=== PATIENT | male | born 1950 | race African-American/Black ===

== ENCOUNTER 2021-05-30 09:31 | Observation (INO) ==
[2021-05-30] MEDS ORDERED: ACETAMINOPHEN 325 MG TABLET PO PRN (10:22)
[2021-05-30] MEDS ORDERED: DEXTROSE 10% 25 GM/250 ML BAG IV PRN (10:22)
[2021-05-30] MEDS ORDERED: ONDANSETRON 4 MG/2 ML VIAL IV PRN (10:22)
[2021-05-30] MEDS ORDERED: GLUCAGON 1 MG VIAL IM PRN ×2 (10:22→15:19)
[2021-05-30 10:34] LABS: Basophils % 0.5 % (0.0-0.8); Eosinophils % 0.5 % (0.00-10.9); Hematocrit 31.5 VOL% (42.0-52.0); Hemoglobin 9.9 GM/DL (14.0-18.0); Immature Granulocytes % 0.3 %; Immature Granulocytes Absolute 0.02 #; Lymphocytes # 1.3 10*3/uL (1.4-4.0); Lymphocytes % 21.4 % (21.2-54.2); Mean Corpuscular HGB Conc 31.4 GM/DL (32-36); Mean Corpuscular Volume 88.5 FL (87-102); Mean Platelet Volume 10.8 FL (9.6-12.0); Monocytes % 7.4 % (1.7-12.7); Neutrophils % 69.9 % (38.7-73.9); Platelet Count 195 T/CUMM (130-400); Red Blood Count 3.56 MC/CUMM (3.8-5.5); Red Cell Distribution Width 19.1 % (9.3-17.3); White Blood Count 6.1 T/CUMM (4-12)
[2021-05-30 10:48] LABS: Calcium 8.6 MG/DL (8.5-10.1); Potassium 4.6 MMOL/L (3.5-5.1)
[2021-05-30] MEDS: LACTATED RINGERS 1,000 ML IV SCH ×2 (11:21→22:59)
[2021-05-30] MEDS ORDERED: DEXTROSE 50% 25 GM/50 ML VIAL IV PRN (15:19)
[2021-05-31 01:27] LABS: Barbiturates Screen,Urine Negative (Negative); Benzodiazepines Screen,Urine Negative (Negative); Cannabinoid Screen,Urine Negative (Negative); Opiate Screen,Urine Positive (Negative); Phencyclidine Screen,Urine Negative (Negative)
[2021-05-31] MEDS: LACTATED RINGERS 1,000 ML IV SCH ×2 (02:54→06:49)
[2021-05-31] MEDS ORDERED: PANTOPRAZOLE 40 MG TABLET PO SCH (09:00)
[2021-05-31 16:12] VITALS: BP 145/70
== END 2021-05-31 17:00 | disposition home or self-care (01) ==
LOC: N.ED 09:31 → N.EDINP 09:31 → N.5E 11:55
PROVIDERS: ADMIT Surgery; ATTEND Surgery